=== PATIENT | female | born 1945 | race Caucasian/White ===

== ENCOUNTER 2022-08-03 18:52 | Emergency (ER) | payer OTHER, MEDICAID ==
[~2022-08-03] VITALS: Ht 167.6 cm; Wt 49.9 kg
[2022-08-03 18:58] VITALS: BP_SYST 96
[2022-08-03] MEDS ORDERED: IBUP-1969 PO (20:37)
[2022-08-03] MEDS ORDERED: LORazepam 2 MG/ML VIAL IM ONE (21:45)
[2022-08-04] MEDS ORDERED: LORazepam 2 MG/ML VIAL IM ONE (03:30)
[2022-08-04] MEDS ORDERED: HALOPERIDOL LACTATE 5 MG/ML VIAL IM ONE (03:30)
[2022-08-04 08:29] VITALS: BP_SYST 102
== END 2022-08-04 08:31 | disposition home or self-care (01) ==
LOC: SED 18:52
DX: S00.01XA Abrasion of scalp, initial encounter (principal); M25.572 Pain in left ankle and joints of left foot; K21.9 Gastro-esophageal reflux disease without esophagitis; I10 Essential (primary) hypertension; Z79.899 Other long term (current) drug therapy; W19.XXXA Unspecified fall, initial encounter; Y93.89 Activity, other specified; Y92.89 Other specified places as the place of occurrence of the external cause; Y99.8 Other external cause status
CPT/HCPCS: 99285; 70450; 73610; 76376; 96372 ×2; J2060 ×2; J1630

== ENCOUNTER 2022-10-10 15:37 | Emergency (ER) | payer OTHER, MEDICAID ==
[~2022-10-10] VITALS: Ht 165.1 cm; Wt 63.5 kg
[~2022-10-10 15:37] MED LIST: IBUP-1969 PO
[2022-10-10 15:40] VITALS: BP_SYST 90
[2022-10-10 21:07] VITALS: BP_SYST 120
== END 2022-10-10 21:10 | disposition home or self-care (01) ==
LOC: SED 15:37
DX: S00.93XA Contusion of unspecified part of head, initial encounter (principal); S50.01XA Contusion of right elbow, initial encounter; S39.92XA Unspecified injury of lower back, initial encounter; S09.90XA Unspecified injury of head, initial encounter; K21.9 Gastro-esophageal reflux disease without esophagitis; I10 Essential (primary) hypertension; Z79.899 Other long term (current) drug therapy; W19.XXXA Unspecified fall, initial encounter; Y93.89 Activity, other specified; Y92.89 Other specified places as the place of occurrence of the external cause; Y99.8 Other external cause status
CPT/HCPCS: 70450-TC; 72131; 72170-TC; 76376; 99284

== ENCOUNTER 2023-02-01 19:07 | Emergency (ER) | payer OTHER, MEDICAID ==
[~2023-02-01] VITALS: Ht 162.6 cm; Wt 49.9 kg
[2023-02-01 19:45] VITALS: BP_SYST 110; PULSE 60; RESP 18; TEMP 97.6; O2SAT 98
[2023-02-01 21:00] VITALS: BP_SYST 110; PULSE 60; RESP 18; TEMP 97.6; O2SAT 98
== END 2023-02-01 21:00 | disposition home or self-care (01) ==
LOC: SED 19:07
DX: Z48.00 Encounter for change or removal of nonsurgical wound dressing (principal); E11.9 Type 2 diabetes mellitus without complications; K21.9 Gastro-esophageal reflux disease without esophagitis; I10 Essential (primary) hypertension; Z79.899 Other long term (current) drug therapy
CPT/HCPCS: 82962; 99283